=== PATIENT | male | born 2000 | race Caucasian/White ===

== ENCOUNTER 2022-02-25 13:50 | Emergency (ER) | payer SELFPAY ==
[~2022-02-25] VITALS: Ht 175.3 cm; Wt 75.0 kg
[2022-02-25 14:02] VITALS: BP 131/91
[2022-02-25 15:53] LABS: BASOPHILS % 0.8 % (0.0-2.0); EOSINOPHILS % 1.4 % (0.0-5.0); HEMATOCRIT. 51.4 % (42.0-52.0); HEMOGLOBIN. 17.4 g/dL (14.0-18.0); LYMPHOCYTES % 34.8 % (20.0-50.0); MEAN CORPUSCULAR HEMOGLOBIN 30.1 pg (28.0-32.0); MONOCYTES % 5.9 % (2.0-8.0); NEUTROPHILS % 57.1 % (40.0-76.0); PROTHROMBIN TIME 10.6 sec (9.6-11.0); RED BLOOD CELL COUNT 5.78 mill/uL (4.7-6.1); RED CELL DISTRIBUTION WIDTH 13.3 % (11.6-14.6)
[2022-02-25 16:02] LABS: CHLORIDE 103 mEq/L (98-107)
[2022-02-25 17:31] LABS: MEAN PLATELET VOLUME 8.7 fl (7.4-10.4); PLATELET 288 x1000/uL (130-400)
== END 2022-02-25 18:14 | disposition home or self-care (01) ==
LOC: ER 13:50
DX: I10 Essential (primary) hypertension (principal); K92.0 Hematemesis; Z91.14 Patient's other noncompliance with medication regimen
CPT/HCPCS: 36415; 71045; 80053; 82270; 85025; 99284

== ENCOUNTER 2024-02-09 03:03 | Emergency (ER) | payer MEDICAID ==
[~2024-02-09] VITALS: Ht 175.3 cm; Wt 66.0 kg
[2024-02-09 03:12] VITALS: O2SAT 99
[2024-02-09 03:23] VITALS: BP 137/85; PULSE 96; RESP 18; TEMP 97.9; O2SAT 98
[2024-02-09] MEDS: ACETAMINOPHEN 500MG TABLET PO ONE (03:45)
== END 2024-02-09 06:20 | disposition home or self-care (01) ==
LOC: ER 03:03
DX: S09.90XA Unspecified injury of head, initial encounter (principal); I10 Essential (primary) hypertension; Y04.0XXA Assault by unarmed brawl or fight, initial encounter; Y93.89 Activity, other specified; Y92.89 Other specified places as the place of occurrence of the external cause; Y99.8 Other external cause status
CPT/HCPCS: 99284